=== PATIENT | male | born 1985 | race Two or more races ===

== ENCOUNTER 2020-04-12 10:08 | Emergency (ER) | payer MEDICAID, OTHER ==
[~2020-04-12] VITALS: Ht 180.3 cm; Wt 113.4 kg
[2020-04-12 10:56] VITALS: BP 153/109
== END 2020-04-12 11:04 | disposition home or self-care (01) ==
LOC: ER 10:08
DX: U07.1 COVID-19 (principal); J12.82 Pneumonia due to coronavirus disease 2019; F17.210 Nicotine dependence, cigarettes, uncomplicated
CPT/HCPCS: 71046